=== PATIENT | female | born 1950 | race Caucasian/White ===

== ENCOUNTER → 2016-03-04 | Outpatient (CLI) | payer OTHER ==
[~2016-03-04] MED LIST: IOPAMIDOL (ISOVUE-300) 50 ML VIAL IV ONE
[2016-03-04 14:27] LABS: CREATININE 0.9 mg/dL (0.6-1.0); GLOMERULAR FILTRATION RATE > 60
--- NOTE | 2016-03-04 17:36 | CT ---
CT Abdomen and Pelvis, With Contrast History: Ventral hernia. Nonsmoker, with no cancer history. Technique: Axial contrast-enhanced images were obtained through the abdomen and pelvis following the uneventful administration of oral and 98 mL Isovue-300 intravenous contrast. Dose reduction [employer] ues were utilized. Comparison: None available. Findings Abdomen: There are multiple noncalcified pulmonary nodules in the lung bases, including a reference 6 mm right lower lobe nodule (series #5, image #8). There are scattered areas of minimal bronchiecta sis and mucous plugging. Heart size is normal. The liver is borderline enlarged. The gallbladder, spleen, and kidneys are normal. There is diffuse fatty replacement of the pancreas. Nodular contour of the left adrenal gland is present, without a discrete dominant nodule. The right adrenal gland is normal. Mild sigmoid diverticulosis is present, without evidence of diverticulitis. Moderate stool is presen t in the colon. The colon and small bowel are normal caliber, without evidence of obstruction. The appendix is not visible. There is no free fluid or air. There is marked convexity of the anterior abdominal and pelvic wall, with marked abdominal laxity, wi thout a semaj hernia. There is thinning of the rectus abdominis muscles, with diastasis of the linea alba. The aorta is normal caliber. The IVC, hepatic, portal, splenic, and superior mesenteric vein s are patent. No pathologically enlarged lymph nodes are identified. There is multilevel moderate to severe degenerative change in the lumbar spine, with dextroscoliosis of the thoracolumbar junction. There is moderate spinal canal narrowing throughout the lumbar spine, with severe spinal canal narrowing at L5-S1 secondary to a diffuse annular bulge and degenerative ch matheus. There is moderate to severe bilateral neural foraminal stenosis, most severe on the right at L 3-L4. Pelvis: The bladder is normal. Uterine contour is normal. No aggressive osseous lesions are presen t. Impressions 1. Marked convexity of the anterior abdominal wall, with thinning of the linea alba and diastasis of the rectus abdominis muscles, without semaj hernia. 2. Numerous noncalcified pulmonary nodules in the visualized lung bases, with scattered bronchiectas is and mucous plugging, which could be related to LISANDRA but is nonspecific. CT chest is recommended fo r further evaluation. 3. Diverticulosis, without evidence of diverticulitis. 4. Severe degenerative change in the lumbar spine including severe spinal canal narrowing at L5-S1. 5. Additional findings, as above. A Follow-Up Required test result notification was sent via the Room service, 5:14:41 PM, 03/04/2016 , Room Message ID [id number].
== END ==
LOC: FIMAGING 13:05
PROVIDERS: ATTEND Surgery
DX: M62.00 Separation of muscle (nontraumatic), unspecified site (principal); R91.1 Solitary pulmonary nodule; K57.90 Diverticulosis of intestine, part unspecified, without perforation or abscess without bleeding; M51.36 Other intervertebral disc degeneration, lumbar region; M48.07 Spinal stenosis, lumbosacral region
CPT/HCPCS: 74177; Q9967